=== PATIENT | female | born 1965 | race Caucasian/White ===

== ENCOUNTER 2022-02-22 08:16 | Outpatient (CLI) | payer OTHER, SELFPAY ==
--- NOTE | 2022-02-22 08:33 | ECG_ITS ---
Measurements Intervals [place] Rate: 78 P: 71 [place]: 165 QRS: 65 QRSD: 90 T: 69 QT: 365 QTc: 416 Interpretive Statements SINUS RHYTHM Electronically Signed On 02-22-2022 12:39:15 CDT by Satnam Reilly M.D.
== END 2022-02-22 08:17 | disposition home or self-care (01) ==
LOC: ANHSURGERY 08:21
PROVIDERS: PCP Family Medicine; Visit Provider Surgery Plastic and Reconstructive Surgery
DX: F17.210 Nicotine dependence, cigarettes, uncomplicated (principal); Z01.818 Encounter for other preprocedural examination
CPT/HCPCS: 93005

== ENCOUNTER 2022-02-25 00:26 | Day surgery (SDC) | payer OTHER, SELFPAY ==
[2022-02-21 14:36] VITALS: BMI 22.6
--- NOTE | 2022-02-21 14:38 | PC.NURSE ---
Report to the Outpatient Waiting Room, entrance under the green pavilion located off [facility], at time _0930_ on date _[id number]_. OR Time: _1130_. - You and your visitor will be asked to self-screen and do not enter if you have any COVID symptoms. - Only one visitor and NO children visitors are allowed at this time. - The patient visitor is requested to leave or wait in car when not with patient due to restrictions. - A mask is required within the hospital. Patients may have clear liquids (water, carbonated beverages, clear teas, apple juice) until 3 hours prior to surgery with a maximum of 20 ounces. - No food from midnight until time of surgery Take the following medications with a SIP of water the morning of surgery: _Sertraline Medications to discontinue per physician Vitamins Date to take last [id number] Please no make-up, nail estonian, hairspray, perfume, deodorant, or body powder the day of surgery. No jewelry (including any body piercings) or valuables the day of surgery, leave them at home. Please take a shower or bath the night before, or the morning of, surgery with an antibacterial soap. Wear comfortable, loose fitting clothing. - Jewelry must be removed prior to entering the operating room. Rings and piercings that are not removed may be cut off. - The hospital will not accept responsibility for valuables. - Please leave all valuables, including medications, at home the day of surgery. If you are going home after surgery, a licensed armored truck driver must drive you home. - NO public transportation without another adult. - We recommend that an adult stay with you for 24 hours following discharge. - We also recommend that you do not drive, make important decision, drink alcoholic beverages, or take any drugs that were not prescribed by your health care provider for at least 24 hours after your discharge time. Follow any additional instructions given to you from your surgeon. If you or anyone in your household have experienced Covid symptoms in the past week, please notify your surgeon or the nurse liaison at the phone number below for possible testing. Telephone instructions given to ___Patient and asked if any additional questions and then verbalized understanding. Patient advised to call surgeon office or pre surgery nurse liaison [phone] if any additional questions.
--- NOTE | 2022-02-24 09:16 | WPDANESEPPF ---
Anes - Initial Pre Proc Eval Procedure: Operation Date: 02/25/22 11:30 Proposed Procedures p Bilateral Breast Implant Exchange - Ishaan Ramos MD Date/Time: 02/24/22 09:16 Surgeon: Ishaan Ramos MD Pre Op Diagnosis: Hx of Breast Augmentation Patient Data Age: 56 Gender: F Height: 1.63 m Weight: 60 kg Allergies Allergy/AdvReac Type Severity Reaction Status Date / Time No Known Allergies Allergy Unverified 02/21/22 14:28 Home Medications Medication Instructions Recorded Confirmed Type calcium carbonate-vitamin D3 1 tab-cap PO BID 11/23/21 02/21/22 History [Calcium 600 with Vitamin D3] multivitamin 1 tablet PO DAILY 11/23/21 02/21/22 History sertraline 100 mg tablet (Zoloft) 100 mg PO DAILY 11/23/21 02/21/22 History carisoprodol 350 mg tablet (Soma) 350 mg PO TID PRN muscle pain #21 02/09/22 02/09/22 Rx tabs docusate sodium 100 mg capsule 100 mg PO DAILY #14 caps 02/09/22 Rx (Colace) hydrocodone 5 mg-acetaminophen 325 1 tablet PO Q6H PRN pain #30 tabs 02/09/22 02/09/22 Rx mg tablet ondansetron HCl 4 mg tablet 4 mg PO Q8H #21 tabs 02/09/22 Rx Patient hx anesthesia problems: none Family hx anesthesia problems: none Results Review: All pre-operative results and documents have been reviewed as part of the pre-operative evaluation. FORMERLY [facility], [facility]1983 Family History Family History Mother Leukemia Social History Social History Smoking packs per day: 1.5 Smoking cigarettes per day: 30.0 Years smoked: 40 Smoking pack-years: 60.00 Smoking status: Former smoker Tobacco type: cigarettes and e-cigarettes/vaping Smoking end date: 02/22/20 Alcohol intake: current Substance use: never Living arrangements: with family Spiritual care concerns: No Anes - Eval Final PreProcedure Day of Procedure 02/24/22 09:16 Patient weight: normal Heart: regular rate and rhythm Lungs: clear to auscultation Airway: Mallampati scale class II Neurological: alert and oriented Last oral intake: >/= 8 hours ASA classification: II Emergent: no Anesthetic plan: proceed Anesthesia type and monitoring: general LMA and standard monitoring Results Review: All pre-operative results and documents have been reviewed as part of the pre-operative evaluation. Informed Consent: The patient's anesthetic plan and its attendant risks and benefits were discussed with the patient/family/POA. Questions were solicited and answers provided to the satisfaction of the patient/family/POA.
[2022-02-25] VITALS (8 sets, daily range): BP systolic 132–155; BP diastolic 67–86; PULSE 74–90; RESP 10–18; TEMP 36.3; O2SAT 94–100
[2022-02-25] MEDS: LACTATED RINGERS 1,000 ML 30 ML IV CONT ×2 (10:00→12:35)
--- NOTE | 2022-02-25 10:32 | W.PM.PROC2 ---
Procedure Note - Detailed Date of Procedure 02/25/22 Pre-op Diagnosis Hx of Breast Augmentation Post-op Diagnosis Same Procedure Performed Bilateral breast implant exchange Surgeon Ishaan Ramos MD Anesthesia General Findings Previous implants: Right - Saline 225cc intact (flipped with path anterior) Left - Saline 225cc intact New implants Right - Natrelle 225cc filled to 245cc REF# [id number] SN [id number] Left - Natrelle 225cc filled to 245cc REF# [id number] SN [id number] Right IMF capsulorrhaphy completed. Description of Procedure Preoperatively the risks, benefits, alternatives were discussed in extensive detail. I wanted them to be realistic about the risks involved as well as expectations. Her goal is primarily implant exchange and her secondary goal is slight elevation of the right IMF. She states there is a minimal asymmetry and understands this could recur and if there is no improvement she would still be happy with the procedure. We had a lengthy discussion about how I can make her worse including but not limited to loss of implant. She understands we do not have her current implant information I can never guarantee her new implants will be the same size. All questions were answered to her satisfaction today. Consent was obtained. She would like proceed. She was taken to the operating room placed supine on the operating room table. Anesthesia was provided by anesthesiology and she was prepped and draped in standard fashion Surgical time-out was taken. 1% lidocaine and 0.25% Marcaine with epinephrine was used to provide a field block. Fifteen blade used to make an incision excising her previous IMF scar. This IMF scar is on the lower pole the breast. She states this is where was when she had her original augmentation and she is accepting of this and would like to use that scar. Implant was identified removed. A copiously irrigated with saline solution on TUR tubing. On the right I did a superior capsulotomy and inferior popcorn capsulorrhaphy. Throughout the procedure we did have Tegaderm nipple Michael in place. I copiously irrigated the pocket with Betadine solution. Wash my gloves. On the back table removed all the air from the implants which were soaking in Betadine and using a fill kit we filled the implants were placed. Implant was placed into the pocket and filled with the fill kit to the volumes as above. This was closed using 2-0 Vicryl followed by 3-0 Monocryl and running subcuticular 4-0 Monocryl tissue. Dressings were placed. Patient was woken taken to the PACU without difficulty. All instrument sponge counts were correct in case. Estimated Blood Loss 20 Drains No Packing No Pathology None sent Complications No immediate complications Condition Stable Disposition PACU
--- NOTE | 2022-02-25 10:35 | WPDHPUPDATE1 ---
History and Physical Update Update Date/Time: 02/25/22 10:35 History and Physical has been reviewed, including an updated exam of the patient. There are NO changes in the patient's condition. Risks, benefits, and alternatives have been discussed and questions answered. Patient agrees to proceed with procedure.
[2022-02-25] MEDS: BUPIVACAINE HCL 0.25% PF 30 ML VIAL INFILTRATE (10:42)
[2022-02-25] MEDS: ceFAZolin 2 GM/D5W 50 ML 2 GM/50 ML BAG IVPB (10:42)
[2022-02-25] MEDS: NACL 0.9% IRRIG POUR BOTTLE 900 ML, GENTAMICIN SULFATE INJ 160 MG, ceFAZolin 2 GM, POVI... IRRIGATION (10:42)
[2022-02-25] MEDS: LIDO 1%/EPINEPHRINE 1:100,000 50 ML VIAL 30 ML INFILTRATE (10:42)
[2022-02-25] MEDS: TRANEXAMIC ACID 1,000 MG/10 ML AMPUL 1000 MG IV PUSH (11:07)
[2022-02-25] MEDS: fentaNYL CITRATE INJ (*CRX) 100 MCG/2 ML VIAL 25 MCG IV PUSH ×2 (12:07→12:10)
== END 2022-02-25 13:56 | disposition home or self-care (01) ==
PROVIDERS: PCP Family Medicine; Visit Provider Surgery Plastic and Reconstructive Surgery
PROC: (CPT 19325; principal; 2022-02-25 11:30)
DX: Z45.812 Encounter for adjustment or removal of left breast implant (principal); Z45.811 Encounter for adjustment or removal of right breast implant; F17.210 Nicotine dependence, cigarettes, uncomplicated
CPT/HCPCS: 19325; 19328; J0690; J1100; J1580; J2250; J2405; J2704; J3010; J7030; J7120